=== PATIENT | male | born 1995 | race Caucasian/White ===

== ENCOUNTER 2016-07-26 18:26 | Emergency (ER) | payer BC ==
[2016-07-26] MEDS ORDERED: predniSONE 20 MG TAB PO STA (19:18)
[2016-07-26] MEDS ORDERED: IPRATROPIUM-ALBUTEROL 3 ML NEB INHALATION STA (19:18)
--- NOTE | 2016-07-26 19:23 | ED ---
General Adult HPI - General Chief complaint: Upper Respiratory Infection Stated complaint: SOB Time Seen by Provider: 07/26/16 19:10 Source: patient Mode of arrival: ambulatory Limitations: no limitations - History of Present Illness Initial comments: This is a 21-year-old male with a history of asthma and anxiety who presents emergency department for shortness of breath and cough for multiple weeks. He states that he does have a history of asthma and has been trying his breathing treatments at home however these did not relieve the symptoms. He went to an urgent care earlier today and was diagnosed with upper respiratory infection and placed on amoxicillin. He states that he continued to feel short of breath with a cough and was worried that he was having a lower respiratory infection suicide come emergency department. The patient does admit that he has severe anxiety and feels that his anxiety is playing a role in his symptoms as well however he is very concerned that something else may be going on with him. He denies any chest pain. No fevers or chills. No runny nose. No earaches. No sore throat. No other complaints. - Related Data Previous Rx's Medication Instructions Recorded Albuterol Nebulized [Ventolin 2.5 mg INHALATION Q6H PRN #30 vial 07/26/16 Nebulized] Amoxicillin 875 mg PO Q12HR #14 tablet 07/26/16 predniSONE 50 mg PO DAILY #4 tab 07/26/16 Allergies Allergy/AdvReac Type Severity Reaction Status Date / Time No Known Allergies Allergy Verified 07/26/16 19:29 Review of Systems ROS Statement: Those systems with pertinent positive or pertinent negative responses have been documented in the HPI. ROS Other: All systems not noted in ROS Statement are negative. Past Medical History Past Medical History: Asthma History of Any Multi-Drug Resistant Organisms: None Reported Past Surgical History: No Surgical Hx Reported Past Psychological History: Anxiety, Depression Smoking Status: Never smoker Past Alcohol Use History: None Reported Past Drug Use History: None Reported General Exam - General Exam Comments Initial Comments: Constitutional: Awake alert Appears comfortable Head: Normocephalic atraumatic Eyes: no conjunctival injection No scleral icterus EOMI Neck: No JVD Supple Heart: Tachycardia with regular rate normal S1-S2 no murmurs Lungs: Clear to auscultation bilaterally mild expiratory wheezes No rales Abdomen: Soft nondistended nontender Extremities: Non edematous DP pulses intact Radial pulses intact Neuro: A&Ox3 No focal neurologic deficits Psych: Appropriate mood and affect, very anxious appearing and hyperverbal Limitations: no limitations Course Vital Signs 07/26/16 07/26/16 07/26/16 18:43 19:36 19:47 Temperature 98.1 F Pulse Rate 133 H 128 H 128 H Respiratory 20 Rate Blood Pressure 136/86 O2 Sat by Pulse 100 Oximetry EKG Findings - EKG Comments: EKG Findings:: EKG showing sinus tachycardia with a rate of 122. No abnormal ST segment changes or T-wave inversions. QTC is 467. Other intervals are normal. No ectopy. Medical Decision Making - Medical Decision Making Is a 21-year-old male presents emergency department for shortness of breath and cough for a month. Chest x-ray was normal. EKG was also unremarkable except for tachycardia. I feel that the patient's tachycardia is related to the fact that he used his inhaler before he came and his extreme anxiety. He was given a DuoNeb in the emergency department with improvement in his symptoms. He was also started on prednisone. Him and start him on amoxicillin, prednisone and give him a refill on his albuterol nebulizer at home. He is follow up with his primary doctor. He can return if he has worsening symptoms. All questions were answered. Disposition Clinical Impression: Asthma Disposition: HOME SELF-CARE Condition: Stable Instructions: Asthma (ED) Prescriptions: Albuterol Nebulized [Ventolin Nebulized] 2.5 mg INHALATION Q6H PRN #30 vial PRN Reason: Wheezing Amoxicillin 875 mg PO Q12HR #14 tablet predniSONE 50 mg PO DAILY #4 tab Referrals: None,Stated [Primary Care Provider] - 1-2 days
--- NOTE | 2016-07-26 20:29 | XR ---
EXAMINATION TYPE: XR chest 2V DATE OF EXAM: 07/26/2016 8:26 PM COMPARISON: NONE HISTORY: Cough TECHNIQUE: Frontal and lateral views of the chest are obtained. FINDINGS: Heart and mediastinum are normal. Lungs are clear. Diaphragm is normal. Bony thorax appear s normal. IMPRESSION: Normal chest
[2016-07-26 20:46] VITALS: BP 128/74; PULSE 110; RESP 18; TEMP 98.2
== END 2016-07-26 20:57 | disposition home or self-care (01) ==
LOC: EC 18:26
DX: J45.909 Unspecified asthma, uncomplicated (principal); R00.0 Tachycardia, unspecified
CPT/HCPCS: 99283; 94640; 93005; 71020; J7512

== ENCOUNTER 2016-08-11 18:35 | Emergency (ER) | payer BC ==
[2016-08-11 18:47] VITALS: TEMP 98.4
[2016-08-11] MEDS ORDERED: IPRATROPIUM-ALBUTEROL 3 ML NEB INHALATION STA (19:13)
[2016-08-11] MEDS ORDERED: methylPREDNISolone SOD SUCCI 125 MG/2 ML VIAL IM ONE (19:13)
[2016-08-11 19:31] VITALS: RESP 18
--- NOTE | 2016-08-11 19:59 | ED ---
Anxiety HPI - General Chief Complaint: Anxiety Stated Complaint: anxiety Time Seen by Provider: 08/11/16 18:49 Source: patient, RN notes reviewed, old records reviewed Mode of arrival: ambulatory - History of Present Illness Initial Comments: He has a nonproductive cough. She denies any abdominal pain. Reports this panic attacks have caused him to dry heave. He reports that he does not have any suicidal thoughts but does feel somewhat depressed. He reports that he used to be on Celexa but states that he has been off of it. Patient is concerned and he states he wants to get back on psychiatric medication. Patient reports that he does have diffuse his nebulizer frequently for his shortness of breath. Sates that he started to become worried and anxious and one palpates the He becomes short of breath again. Patient denies any recent fever or chills. - Related Data Home Medications: Home Medications Medication Instructions Recorded Confirmed Albuterol Nebulized [Ventolin 2.5 mg INHALATION RT-Q6H PRN 08/11/16 08/11/16 Nebulized] Previous Rx's Medication Instructions Recorded LORazepam [Ativan] 1 mg PO BID #12 tab 08/11/16 guaiFENesin-DM 600/30MG [Mucinex 1 each PO Q12HR #20 tab.er.12h 08/11/16 Dm] methylPREDNISolone Dose Pack 4 mg PO DIRECTED #21 package 08/11/16 [Medrol Dose Pack] Allergies/Adverse Reactions: Allergies Allergy/AdvReac Type Severity Reaction Status Date / Time No Known Allergies Allergy Verified 08/11/16 19:15 Review of Systems ROS Statement: Those systems with pertinent positive or pertinent negative responses have been documented in the HPI. ROS Other: All systems not noted in ROS Statement are negative. Past Medical History Past Medical History: Asthma History of Any Multi-Drug Resistant Organisms: None Reported Past Surgical History: No Surgical Hx Reported Past Psychological History: Anxiety, Depression Smoking Status: Never smoker Past Alcohol Use History: None Reported Past Drug Use History: None Reported General Exam - General Exam Comments Initial Comments: 21-year-old male. No acute distress. Limitations: no limitations General appearance: alert, in no apparent distress Head exam: Present: atraumatic, normocephalic, normal inspection Eye exam: Present: normal appearance, PERRL, EOMI. Absent: scleral icterus, conjunctival injection, periorbital swelling ENT exam: Present: normal exam, mucous membranes moist Neck exam: Present: normal inspection. Absent: tenderness, meningismus, lymphadenopathy Respiratory exam: Present: normal lung sounds bilaterally. Absent: respiratory distress, wheezes, rales, rhonchi, stridor Cardiovascular Exam: Present: regular rate, normal rhythm, normal heart sounds. Absent: systolic murmur, diastolic murmur, rubs, gallop, clicks GI/Abdominal exam: Present: soft, normal bowel sounds. Absent: distended, tenderness, guarding, rebound, rigid Extremities exam: Present: normal inspection, full ROM, normal capillary refill. Absent: tenderness, pedal edema, joint swelling, calf tenderness Back exam: Present: normal inspection Neurological exam: Present: alert, oriented X3, CN II-XII intact Psychiatric exam: Present: normal affect, normal mood Skin exam: Present: warm, dry, intact, normal color. Absent: rash Course Vital Signs 08/11/16 08/11/16 08/11/16 18:45 19:30 19:31 Temperature 98.4 F Pulse Rate 112 H 88 Respiratory 20 18 Rate Blood Pressure 138/92 O2 Sat by Pulse 98 Oximetry 08/11/16 19:47 Temperature Pulse Rate 88 Respiratory Rate Blood Pressure O2 Sat by Pulse Oximetry Medical Decision Making - Medical Decision Making e has a nonproductive cough. She denies any abdominal pain. Reports this panic attacks have caused him to dry heave. He reports that he does not have any suicidal thoughts but does feel somewhat depressed. He reports that he used to be on Celexa but states that he has been off of it. Patient is concerned and he states he wants to get back on psychiatric medication. Patient 's chest x-ray was reviewed as negative for any acute process. Patient is given DuoNeb treatment with resolution of his coughing and feels better. Patient was cleared medically for psychiatric evaluation. Patient had a lengthy discussion with the psychiatric nurse. She recommends outpatient treatment. Patient will be given information for referral numbers and outpatient counseling. Was given 1 mg of Ativan emergency department. Write for Ativan for the next few days her severe attacks. Patient agrees and will comply. Return parameters were discussed. - Lab Data Lab Results 08/11/16 Range/Units 19:17 Urine Opiates Screen Not Detected (NotDetected) Ur Oxycodone Screen Not Detected (NotDetected) Urine Methadone Screen Not Detected (NotDetected) Ur Propoxyphene Screen Not Detected (NotDetected) Ur Barbiturates Screen Not Detected (NotDetected) U Tricyclic Antidepress Not Detected (NotDetected) Ur Phencyclidine Scrn Not Detected (NotDetected) Ur Amphetamines Screen Not Detected (NotDetected) U Methamphetamines Scrn Not Detected (NotDetected) U Benzodiazepines Scrn Not Detected (NotDetected) Urine Cocaine Screen Not Detected (NotDetected) U Marijuana (THC) Screen Not Detected (NotDetected) Disposition Clinical Impression: Acute anxiety, Bronchitis, Panic attack as reaction to stress Disposition: HOME SELF-CARE Condition: Good Instructions: Generalized Anxiety Disorder (ED), Acute Bronchitis (ED) Additional Instructions: Patient is to rest, increase fluids. Take medications as prescribed. Patient also advised to follow up with outpatient services. Return to emergency room if any alarming signs or symptoms occur. Patient advised also used breathing treatments as directed. Prescriptions: guaiFENesin-DM 600/30MG [Mucinex Dm] 1 each PO Q12HR #20 tab.er.12h LORazepam [Ativan] 1 mg PO BID #12 tab methylPREDNISolone Dose Pack [Medrol Dose Pack] 4 mg PO DIRECTED #21 package Referrals: Krystyna Rosales MD [STAFF PHYSICIAN] - 1-2 days Time of Disposition: 21:36
--- NOTE | 2016-08-11 20:14 | XR ---
EXAMINATION TYPE: XR chest 2V DATE OF EXAM: 08/11/2016 7:53 PM COMPARISON: 07/26/2016 HISTORY: Anxiety TECHNIQUE: Frontal and lateral views of the chest are obtained. FINDINGS: Heart and mediastinum are normal. Lungs are clear. Diaphragm is normal. Bony thorax is int act. IMPRESSION: Normal chest. No change.
[2016-08-11] MEDS ORDERED: LORazepam 1 MG TAB PO STA (21:29)
[2016-08-11 21:59] VITALS: BP 122/81; PULSE 95
== END 2016-08-11 22:17 | disposition home or self-care (01) ==
LOC: EC 18:35
DX: J40 Bronchitis, not specified as acute or chronic (principal); F41.9 Anxiety disorder, unspecified; F43.0 Acute stress reaction; F32.9 Major depressive disorder, single episode, unspecified
CPT/HCPCS: 94640; 80306; 71020; 99284; 96372; J2930

== ENCOUNTER 2017-10-17 17:20 | Emergency (ER) | payer BC ==
[2017-10-17 18:22] VITALS: BP 139/73; PULSE 92; RESP 18; TEMP 98.2
[2017-10-17] MEDS ORDERED: SODIUM CHLORIDE 0.9% 1,000 ML IV STA (18:55)
--- NOTE | 2017-10-17 19:31 | XR ---
EXAMINATION TYPE: XR chest 2V, XR ribs LT DATE OF EXAM: 10/17/2017 COMPARISON: 08/11/2016 HISTORY: Chest pain and left rib pain TECHNIQUE: Frontal and lateral views of the chest are obtained. Frontal and oblique views of the lef t ribs are also obtained. FINDINGS: There is no focal air space opacity, pleural effusion, or pneumothorax seen. The cardiac silhouette size is within normal limits. The osseous structures are intact. Pulmonary hyperinflatio n likely relates to the degree of inspiration. There are mild costochondral calcifications seen on th e left. There is no evidence of acute displaced rib fracture or callused healed fracture deformity. IMPRESSION: No acute cardiopulmonary process. No acute displaced rib fracture or callused healed rib fracture deformity.
[2017-10-17 19:58] LABS: Basophils % (A) 0 %; Eosinophils % (A) 0 %; HCT 44.2 % (39.0-53.0); Lymphocytes # (A) 1.4 k/uL (1.0-4.8); Lymphocytes % (A) 18 %; MCH 30.9 pg (25.0-35.0); MCV 90.9 fL (80.0-100.0); Monocytes # (A) 0.3 k/uL (0-1.0); Monocytes % (A) 3 %; Neutrophils # (A) 6.1 k/uL (1.3-7.7); Neutrophils % (A) 78 %; Platelet Count 205 k/uL (150-450); RBC 4.86 m/uL (4.30-5.90); RDW 12.1 % (11.5-15.5); WBC 7.8 k/uL (3.8-10.6)
[2017-10-17 20:11] LABS: D-Dimer 0.23 mg/L FEU (<0.60); INR 1.1 (<1.2); Partial Thromboplastin Time 23.5 sec (22.0-30.0); Prothrombin Time 10.7 sec (9.0-12.0)
[2017-10-17 20:12] LABS: ALT 34 U/L (21-72); AST 23 U/L (17-59); Albumin 4.9 g/dL (3.5-5.0); Alkaline Phosphatase 60 U/L (38-126); Anion Gap 9 mmol/L; Blood Urea Nitrogen 10 mg/dL (9-20); Calcium 10.2 mg/dL (8.4-10.2); Carbon Dioxide 25 mmol/L (22-30); Chloride 107 mmol/L (98-107); Glucose 96 mg/dL (74-99); Magnesium 1.8 mg/dL (1.6-2.3); Potassium 3.8 mmol/L (3.5-5.1); Sodium 141 mmol/L (137-145); Total Bilirubin 0.5 mg/dL (0.2-1.3); Total Protein 7.8 g/dL (6.3-8.2)
[2017-10-17 20:18] LABS: Creatine Kinase 107 U/L (55-170)
[2017-10-17 20:31] LABS: Creatine Kinase MB 0.8 ng/mL (0.0-2.4); Troponin I <0.012 ng/mL (0.000-0.034)
--- NOTE | 2017-10-17 20:37 | ED ---
Chest Pain HPI - General Chief Complaint: Chest Pain Stated Complaint: lt sided rib pain Time Seen by Provider: 10/17/17 18:49 Source: patient Mode of arrival: ambulatory Limitations: no limitations - History of Present Illness Initial Comments: 22 years old gentleman came in with the chest pain is ongoing for a couple of weeks now it hurts worse with deep breaths is on the left side he does do heavy lifting his job is quite physical, and does some heavy lifting pushing pulling. No fall no trauma to the chest wall he has no history of diabetes hypertension and heart disease - Related Data Home Medications Medication Instructions Recorded Confirmed No Known Home Medications 10/17/17 10/17/17 Allergies Allergy/AdvReac Type Severity Reaction Status Date / Time No Known Allergies Allergy Verified 10/17/17 18:37 Review of Systems ROS Statement: Those systems with pertinent positive or pertinent negative responses have been documented in the HPI. ROS Other: All systems not noted in ROS Statement are negative. EKG Findings - EKG Comments: EKG Findings:: EKG is a normal sinus with sinus arrhythmia ventricular rate is 85 SD interval is 124 QRS duration is 84 QT/QTc is 350/416 review of this EKG does not reveal any ST elevation or ST depression Past Medical History Past Medical History: Asthma History of Any Multi-Drug Resistant Organisms: None Reported Past Surgical History: Adenoidectomy, Tonsillectomy Additional Past Surgical History / Comment(s): santana vieira Past Psychological History: Anxiety, Depression Smoking Status: Never smoker Past Alcohol Use History: None Reported Past Drug Use History: None Reported General Exam - General Exam Comments Initial Comments: General: The patient is awake and alert, in no distress, and does not appear acutely ill. Skin: Skin is warm and dry and no rashes or lesions are noted. Eye: Pupils are equal, round and reactive to light, extra-ocular movements are intact; there is normal conjunctiva bilaterally. Ears, nose, mouth and throat: There are moist mucous membranes and no oral lesions. Neck: The neck is supple, there is no tenderness or JVD. Cardiovascular: There is a regular rate and rhythm. No murmur, rub or gallop is appreciated. Respiratory: To auscultation bilateral, no wheezing no rhonchi no distress respiratory ryder noticed Gastrointestinal: Soft, non-distended, non-tender abdomen without masses or organomegaly noted. There is no rebound or guarding present. Bowel sounds are unremarkable. Back: There is no tenderness to palpation in the midline. There is no obvious deformity. Musculoskeletal: Normal ROM, no tenderness, There is no pedal edema. There is no calf tenderness or swelling. No cords were appreciated. Neurological: CN II-XII intact, Cranial nerves III through XII are intact. There are no obvious motor or sensory deficits. Coordination appears grossly intact. Speech is normal. Psychiatric: Cooperative, appropriate mood & affect, normal judgment. Limitations: no limitations Course Vital Signs 10/17/17 18:18 Temperature 98.2 F Pulse Rate 92 Respiratory 18 Rate Blood Pressure 139/73 O2 Sat by Pulse 100 Oximetry There found her labs as well as imaging revealed normal d-dimer, troponin, CBC, comp his metabolic panel chest x-ray ruled out any pneumothorax or any acute rib injuries rule out any spontaneous pneumothorax. All these findings were discussed with the patient is advised to follow with family doctor also plan to send him to cardiology for a probably outpatient echocardiogram to rule out any anatomical defect Disposition Clinical Impression: Chest pain Disposition: HOME SELF-CARE Condition: Good Is patient prescribed a controlled substance at d/c from ED?: No Referrals: Ervin Leija DO [Primary Care Provider] - 1-2 days Orlando Ackerman MD [STAFF PHYSICIAN] - 1-2 days
== END 2017-10-17 21:11 | disposition home or self-care (01) ==
LOC: EC 17:20
DX: R07.9 Chest pain, unspecified (principal); X50.9XXA Other and unspecified overexertion or strenuous movements or postures, initial encounter
CPT/HCPCS: 36415; 71046; 80053; 82550; 82553; 83735; 84484; 85025; 85379; 85610; 85730; 93005; 99285